=== PATIENT | female | born 1950 | race Caucasian/White ===

== ENCOUNTER 2017-02-04 11:44 | Inpatient (IN) | payer OTHER ==
[~2017-02-04] VITALS: Ht 154.9 cm; Wt 82.6 kg
[~2017-02-04 11:44] MED LIST: APIX5TAB PO; ASCO1TAB4 PO; ASPI-496 PO; ASPI325T4 PO; ATOR80TA75 PO; CLOP75TA PO; CLOP75TA22 PO; COLC0.6T37 PO; CRAN500C5 PO; FURO-93 PO; FURO20TA3 PO; FURO40TA6 PO; GLIP10TA13 PO; GLIP5TAB10 PO; METF500T4 PO; METO-93 PO; POTA10TA12 PO; PRAV20TA2 PO; statin PO
[2017-02-04 12:50] LABS: BLOOD UREA NITROGEN 49 mg/dL (7-18)
[2017-02-04] MEDS ORDERED: SODIUM CHLORIDE FLUSH 10ML SYR IVF ONE (13:00)
[2017-02-04] MEDS ORDERED: ZOLP-413 PO (13:05)
[2017-02-04] MEDS ORDERED: FURO40TA6 PO (13:05)
[2017-02-04] MEDS ORDERED: DIPH25TA65 PO (13:05)
[2017-02-04] MEDS ORDERED: ASCO1TAB2 PO (13:05)
[2017-02-04] MEDS ORDERED: POTA10TA12 PO (13:05)
[2017-02-04] MEDS ORDERED: SODIUM CHLORIDE FLUSH 10ML SYR IVF PRN (14:00)
[2017-02-04] MEDS ORDERED: PHARMACY MAY ADJ FOR RENAL FX MC PRN (15:30)
[2017-02-04] MEDS ORDERED: DOCUSATE 100 MG CAPSULE PO PRN (16:30)
[2017-02-04] MEDS ORDERED: POLYETHYLENE GLYCOL 17 GM PACKET PO PRN (16:30)
[2017-02-04] MEDS ORDERED: GLUCAGON 1 MG IM PRN (16:30)
[2017-02-04] MEDS ORDERED: ONDANSETRON ODT 4 MG PO PRN (16:30)
[2017-02-04] MEDS ORDERED: BISACODYL 10 MG SUPP PR PRN (16:30)
[2017-02-04] MEDS ORDERED: DEXTROSE 50%, 50ML SYRINGE IVPush PRN (16:30)
[2017-02-04] MEDS ORDERED: DEXTROSE 4 GM TAB.CHEW PO PRN (16:30)
[2017-02-04] MEDS ORDERED: FUROSEMIDE 40 MG/4 ML ONE (18:01)
[2017-02-04] MEDS: FUROSEMIDE 40 MG/4 ML IV SCH (18:06)
[2017-02-04 19:15] VITALS: BP 148/76
[2017-02-04 20:00] VITALS: BP 148/76
[2017-02-04] MEDS ORDERED: ASCORBATE CALCIUM PO SCH (21:00)
[2017-02-04] MEDS ORDERED: SODIUM CHLORIDE FLUSH 10ML SYR IVF SCH (21:00)
[2017-02-04] MEDS ORDERED: [UNRECOGNIZED DRUG - OTHER] PO SCH (21:00)
[2017-02-04] MEDS ORDERED: METOPROLOL SUCCINATE 50 MG TAB.ER.24H PO SCH (21:00)
[2017-02-04] MEDS: INSULIN REGULAR 100 UNITS/ML, 3ML VIAL SQ-INSULIN SCH (21:00)
[2017-02-04] MEDS ORDERED: BIOFLAVONOID PO SCH (21:00)
[2017-02-04] MEDS: ZOLPIDEM 5MG TABLET PO SCH (21:45)
[2017-02-04] MEDS: APIXABAN 5 MG TABLET PO SCH (21:46)
[2017-02-04] MEDS: ATORVASTATIN 80 MG TABLET PO SCH (21:46)
[2017-02-04] MEDS: ACETAMINOPHEN 325 MG TABLET PO PRN (21:52)
[2017-02-05 02:12] VITALS: BP 137/68
[2017-02-05 06:27] LABS: BLOOD UREA NITROGEN 44 mg/dL (7-18)
[2017-02-05 07:09] VITALS: BP 112/69
[2017-02-05] MEDS: INSULIN REGULAR 100 UNITS/ML, 3ML VIAL SQ-INSULIN SCH ×4 (07:53→21:00)
[2017-02-05] MEDS: FUROSEMIDE 40 MG/4 ML IV SCH ×2 (08:43→17:15)
[2017-02-05] MEDS: APIXABAN 5 MG TABLET PO SCH ×2 (08:43→21:44)
[2017-02-05] MEDS: DIPHENHYDRAMINE 25 MG CAPSULE PO SCH (08:43)
[2017-02-05] MEDS ORDERED: ASCORBATE CALCIUM PO SCH (09:00)
[2017-02-05] MEDS ORDERED: [UNRECOGNIZED DRUG - OTHER] PO SCH (09:00)
[2017-02-05] MEDS ORDERED: BIOFLAVONOID PO SCH (09:00)
[2017-02-05 13:28] VITALS: BP 118/72
[2017-02-05 19:33] VITALS: BP 108/63
[2017-02-05] MEDS: ACETAMINOPHEN 325 MG TABLET PO PRN (20:24)
[2017-02-05] MEDS: ZOLPIDEM 5MG TABLET PO SCH (21:44)
[2017-02-05] MEDS: ATORVASTATIN 80 MG TABLET PO SCH (21:44)
[2017-02-06 01:39] VITALS: BP 131/68
[2017-02-06 05:15] LABS: BLOOD UREA NITROGEN 43 mg/dL (7-18)
[2017-02-06] MEDS: INSULIN REGULAR 100 UNITS/ML, 3ML VIAL SQ-INSULIN SCH ×2 (08:22→11:00)
[2017-02-06] MEDS: FUROSEMIDE 40 MG/4 ML IV SCH (08:22)
[2017-02-06] MEDS: DIPHENHYDRAMINE 25 MG CAPSULE PO SCH (08:23)
[2017-02-06] MEDS: APIXABAN 5 MG TABLET PO SCH (08:23)
[2017-02-06] MEDS ORDERED: METOPROLOL SUCCINATE 50 MG TAB.ER.24H PO SCH (09:00)
[2017-02-06 09:27] VITALS: BP 108/52
[2017-02-06] MEDS ORDERED: FURO40TA6 PO (11:25)
== END 2017-02-06 13:00 | disposition home or self-care (01) | DRG 291 ==
LOC: ED 13:57 → EDIP 13:58 → ED 14:05 → 5SO 19:01 → DCLOUNGE 02-06 12:22
PROVIDERS: ADMIT Hospitalist; ATTEND Hospitalist
DX: I13.0 Hypertensive heart and chronic kidney disease with heart failure and stage 1 through stage 4 chronic kidney disease, or unspecified chronic kidney disease (principal); I50.43 Acute on chronic combined systolic (congestive) and diastolic (congestive) heart failure; N18.4 Chronic kidney disease, stage 4 (severe); N17.9 Acute kidney failure, unspecified; D68.69 Other thrombophilia; I47.2 Ventricular tachycardia; J98.11 Atelectasis; I42.9 Cardiomyopathy, unspecified; I25.10 Atherosclerotic heart disease of native coronary artery without angina pectoris; I48.91 Unspecified atrial fibrillation; J44.9 Chronic obstructive pulmonary disease, unspecified; D64.9 Anemia, unspecified; D69.6 Thrombocytopenia, unspecified; E11.22 Type 2 diabetes mellitus with diabetic chronic kidney disease; E66.9 Obesity, unspecified; Z68.34 Body mass index [BMI] 34.0-34.9, adult; E78.00 Pure hypercholesterolemia, unspecified; E78.5 Hyperlipidemia, unspecified; F17.200 Nicotine dependence, unspecified, uncomplicated; H40.9 Unspecified glaucoma; H54.41 Blindness, right eye, normal vision left eye; I35.0 Nonrheumatic aortic (valve) stenosis; I35.1 Nonrheumatic aortic (valve) insufficiency; E11.51 Type 2 diabetes mellitus with diabetic peripheral angiopathy without gangrene; K21.9 Gastro-esophageal reflux disease without esophagitis; K58.9 Irritable bowel syndrome, unspecified; Z82.49 Family history of ischemic heart disease and other diseases of the circulatory system; Z71.6 Tobacco abuse counseling; I25.2 Old myocardial infarction; Z83.3 Family history of diabetes mellitus; Z88.8 Allergy status to other drugs, medicaments and biological substances; Z79.899 Other long term (current) drug therapy
CPT/HCPCS: 36415; 71035; 80048; 82040; 82962; 83735; 83880; 84439; 84443; 84484; 85025; 85610; 85730; 93005; 93306; J1940; Q0163

== ENCOUNTER → 2017-04-29 | Outpatient (CLI) | payer OTHER ==
[~2017-04-29] MED LIST changes: +ASCO1TAB2 PO; +ASPI325T17 PO; -ASPI325T4 PO; +ATOR-2 PO; -ATOR80TA75 PO; -CLOP75TA22 PO; +CLOP75TA52 PO; +DIPH25TA65 PO; +ZOLP-413 PO
[2017-04-29 10:07] LABS: BLOOD UREA NITROGEN 45 mg/dL (7-18)
[2017-04-29 10:11] LABS: ASPARTATE AMINO TRANSFERASE 20 U/L (15-37)
[2017-04-29 10:28] LABS: HEMATOCRIT 50.2 % (34.6-47.8); HEMOGLOBIN 16.1 g/dL (11.7-16.4); WHITE BLOOD COUNT 6.8 x10^3/uL (3.4-10)
[2017-04-29 10:30] LABS: ANISOCYTOSIS 1+; OVALOCYTES 1+; POIKILOCYTOSIS 1+; POLYCHROMASIA 1+
[2017-04-29 10:31] LABS: LARGE PLATELETS 1+
== END | disposition home or self-care (01) ==
LOC: STAR 08:37
PROVIDERS: ATTEND Orthopaedic Surgery Orthopaedic Surgery of the Spine
DX: Z01.818 Encounter for other preprocedural examination (principal); J90 Pleural effusion, not elsewhere classified; I51.7 Cardiomegaly; J98.11 Atelectasis; Z79.01 Long term (current) use of anticoagulants
CPT/HCPCS: 36415; 71020; 80053; 81001; 85025; 85610; 85651; 85730; 93005

== ENCOUNTER 2017-05-09 06:14 | Inpatient (IN) | payer OTHER ==
[2017-04-29 09:03] VITALS: BP 98/63
[~2017-05-09] VITALS: Ht 157.5 cm; Wt 79.5 kg
[2017-05-09] MEDS ORDERED: LIDOCAINE 1%, 2ML ONE ×2 (06:54→07:56)
[2017-05-09] MEDS ORDERED: LACTATED RINGERS 1,000 ML IV SCH (07:05)
[2017-05-09] MEDS ORDERED: THROMBIN 20,000 UNIT VIAL TP ONE (07:08)
[2017-05-09] MEDS ORDERED: BUPIVACAINE/PF 0.5% ONE (07:08)
[2017-05-09] MEDS ORDERED: VANCOMYCIN 1,000 MG ONE (07:08)
[2017-05-09] MEDS ORDERED: EPINEPHRINE 1 MG/ML, 1ML ONE (07:08)
[2017-05-09] MEDS ORDERED: BACITRACIN 50,000 UNIT ONE (07:08)
[2017-05-09] MEDS ORDERED: LIDOCAINE 1%, 2ML SQ PRN (07:30)
[2017-05-09] MEDS ORDERED: MIDAZOLAM 1 MG/ML, 2ML ONE ×2 (07:56)
[2017-05-09] MEDS ORDERED: FENTANYL PF 250 MCG/5ML ONE ×2 (07:56)
[2017-05-09] MEDS ORDERED: VANCOMYCIN PER PHARMACY MC ONE (07:56)
[2017-05-09] MEDS ORDERED: GLYCOPYRROLATE 0.2MG/1ML, 5ML ONE (08:10)
[2017-05-09] MEDS ORDERED: NEOSTIGMINE 1 MG/ML, 10ML ONE (08:10)
[2017-05-09] MEDS ORDERED: VANCOMYCIN 1,500 MG in SODIUM CHLORIDE 0.9% 250 ML IV SCH (08:30)
[2017-05-09] MEDS ORDERED: SODIUM CHLORIDE 0.9% 100 ML ONE (09:13)
[2017-05-09] MEDS ORDERED: TRANEXAMIC ACID 100 MG/ML, 10ML ONE (09:13)
[2017-05-09] MEDS ORDERED: BUPIVACAINE/PF-EPI 0.5% 1:200K IM ONE (09:15)
[2017-05-09] MEDS ORDERED: HYDROmorphone 2 MG/ML, 1ML ONE (10:27)
[2017-05-09] MEDS ORDERED: ALBUTEROL SULFATE 2.5 MG/3 ML NPPB PRN (10:30)
[2017-05-09] MEDS ORDERED: MEPERIDINE/PF 25MG/0.5ML IVPush PRN (10:30)
[2017-05-09] MEDS ORDERED: DIAZEPAM 5 MG/ML, 10ML VIAL IVPush ONE (10:30)
[2017-05-09] MEDS ORDERED: ONDANSETRON 2MG/ML, 2ML IVPush PRN (10:30)
[2017-05-09] MEDS ORDERED: LABETALOL 5MG/ML, 20ML IV PRN ×2 (10:30→14:30)
[2017-05-09] MEDS ORDERED: ACETAMINOPHEN 325 MG TABLET PO PRN (10:30)
[2017-05-09] MEDS ORDERED: FENTANYL PF 100 MCG/2ML IV PRN (10:30)
[2017-05-09] MEDS ORDERED: PROPOFOL 10 MG/ML, 20ML ONE (11:44)
[2017-05-09] MEDS ORDERED: DEXAMETHASONE 4 MG/ML, 1ML ONE ×3 (11:44)
[2017-05-09] MEDS ORDERED: ROCURONIUM 10 MG/ML ONE (11:44)
[2017-05-09] MEDS ORDERED: ONDANSETRON 2MG/ML, 2ML ONE (11:44)
[2017-05-09] MEDS ORDERED: FENTANYL PF 100 MCG/2ML ONE (11:46)
[2017-05-09] MEDS ORDERED: SUGAMMADEX 200 MG/2 ML IVPush ONE (12:34)
[2017-05-09] MEDS ORDERED: HYDROmorphone 1 MG/ML, 1ML ONE (12:59)
[2017-05-09] MEDS: HYDROmorphone 1 MG/ML, 1ML IV PRN ×4 (13:00→13:20)
[2017-05-09] MEDS ORDERED: DIPHENHYDRAMINE 50 MG/ML, 1ML IVPush PRN (14:30)
[2017-05-09] MEDS ORDERED: DIPHENHYDRAMINE 50 MG CAPSULE PO PRN (14:30)
[2017-05-09] MEDS ORDERED: morphine SULFATE 10 MG/ML, 1ML IV PRN (14:30)
[2017-05-09] MEDS ORDERED: DIAZEPAM 5 MG/ML, 2ML IV PRN (14:30)
[2017-05-09] MEDS ORDERED: DIPHENHYDRAMINE 50 MG/ML, 1ML IM PRN (14:30)
[2017-05-09] MEDS ORDERED: MAGNESIUM HYDROXIDE 8%, 30ML UDC PO PRN (14:30)
[2017-05-09] MEDS ORDERED: PROMETHAZINE 25 MG/ML, 1ML IM PRN (14:30)
[2017-05-09] MEDS ORDERED: ONDANSETRON 2MG/ML, 2ML IV PRN (14:30)
[2017-05-09] MEDS ORDERED: OXYcodone IR 5MG TABLET PO PRN (14:30)
[2017-05-09] MEDS ORDERED: BISACODYL 10 MG SUPP PR PRN (14:30)
[2017-05-09] MEDS ORDERED: DIPHENHYDRAMINE 25 MG CAPSULE PO PRN (15:00)
[2017-05-09] MEDS ORDERED: VANCOMYCIN 1,500 MG in SODIUM CHLORIDE 0.9% 250 ML IV ONE (16:00)
[2017-05-09] MEDS: NS + 20MEQ KCL 1,000 ML IV SCH (17:28)
[2017-05-09] MEDS: CEFAZOLIN PMX 1GM/50ML 50 ML IVPB SCH (17:28)
[2017-05-09 20:45] VITALS: BP 121/73
[2017-05-09] MEDS ORDERED: ZOLPIDEM 5MG TABLET PO PRN (21:00)
[2017-05-09] MEDS: FUROSEMIDE 40 MG TABLET PO SCH (22:06)
[2017-05-09] MEDS: METOPROLOL SUCCINATE 50 MG TAB.ER.24H PO SCH (22:06)
[2017-05-09] MEDS: ATORVASTATIN 80 MG TABLET PO SCH (22:06)
[2017-05-09 23:36] VITALS: BP 123/56
[2017-05-10] MEDS: CEFAZOLIN PMX 1GM/50ML 50 ML IVPB SCH (00:30)
[2017-05-10 03:00] VITALS: BP 129/72
[2017-05-10 06:13] LABS: HEMATOCRIT 42.2 % (34.6-47.8); HEMOGLOBIN 13.6 g/dL (11.7-16.4); WHITE BLOOD COUNT 10.5 x10^3/uL (3.4-10)
[2017-05-10 08:00] VITALS: BP 126/71
[2017-05-10] MEDS ORDERED: SENNA/DOCUSATE TABLET PO SCH (09:00)
[2017-05-10] MEDS ORDERED: POTASSIUM CHLORIDE 10 MEQ TABLET.ER PO SCH (09:00)
[2017-05-10] MEDS: NS + 20MEQ KCL 1,000 ML IV SCH ×2 (09:00→21:30)
[2017-05-10] MEDS: METOPROLOL SUCCINATE 50 MG TAB.ER.24H PO SCH ×2 (09:52→21:45)
[2017-05-10] MEDS: FUROSEMIDE 40 MG TABLET PO SCH ×2 (09:52→21:45)
[2017-05-10] MEDS: APIXABAN 2.5 MG TABLET PO SCH ×2 (09:53→21:46)
[2017-05-10 13:23] VITALS: BP 100/46
[2017-05-10] MEDS: POTASSIUM CHLORIDE 10 MEQ TABLET.ER PO SCH (17:00)
[2017-05-10] MEDS: OXYcodone IR 5MG TABLET PO PRN ×2 (17:12→21:45)
[2017-05-10 19:57] VITALS: BP 117/54
[2017-05-10] MEDS: ATORVASTATIN 80 MG TABLET PO SCH (21:45)
[2017-05-11 02:33] VITALS: BP 103/53
[2017-05-11] MEDS: OXYcodone IR 5MG TABLET PO PRN ×4 (02:33→16:30)
[2017-05-11 05:33] LABS: HEMATOCRIT 43.4 % (34.6-47.8); HEMOGLOBIN 13.9 g/dL (11.7-16.4); WHITE BLOOD COUNT 9.9 x10^3/uL (3.4-10)
[2017-05-11 06:27] LABS: ANISOCYTOSIS 1+
[2017-05-11 06:28] LABS: OVALOCYTES 1+
[2017-05-11 06:29] LABS: HYPOCHROMIA 1+; LARGE PLATELETS 1+; POIKILOCYTOSIS 1+
[2017-05-11 06:30] LABS: POLYCHROMASIA 1+
[2017-05-11 07:50] VITALS: BP 116/53
[2017-05-11] MEDS: APIXABAN 2.5 MG TABLET PO SCH ×2 (08:18→21:01)
[2017-05-11] MEDS: FUROSEMIDE 40 MG TABLET PO SCH ×2 (08:19→21:00)
[2017-05-11] MEDS: METOPROLOL SUCCINATE 50 MG TAB.ER.24H PO SCH ×2 (08:19→21:00)
[2017-05-11] MEDS: SENNA/DOCUSATE TABLET PO SCH (08:19)
[2017-05-11] MEDS: POTASSIUM CHLORIDE 10 MEQ TABLET.ER PO SCH (08:19)
[2017-05-11] MEDS: NS + 20MEQ KCL 1,000 ML IV SCH (08:20)
[2017-05-11 12:44] VITALS: BP 125/51
[2017-05-11] MEDS ORDERED: SENN1TAB94 PO (14:11)
[2017-05-11] MEDS ORDERED: DIAZ5TAB PO (14:12)
[2017-05-11] MEDS ORDERED: DIPH25CA61 PO (14:14)
[2017-05-11] MEDS ORDERED: OXYC5TAB3 PO (14:15)
[2017-05-11] MEDS ORDERED: OXYC10TA6 PO (14:18)
[2017-05-11] MEDS ORDERED: CEPH-368 PO (14:26)
[2017-05-11] MEDS ORDERED: FLU VACC QS2017-18 (36MOS+) UP/PF 0.5 ML IM-VACC ONE (15:30)
[2017-05-11 17:02] VITALS: BP 109/40
[2017-05-11] MEDS: ATORVASTATIN 80 MG TABLET PO SCH (21:00)
[2017-05-11 21:54] VITALS: BP 140/59
[2017-05-12 00:34] VITALS: BP 110/48
[2017-05-12] MEDS: OXYcodone IR 5MG TABLET PO PRN (05:37)
[2017-05-12 06:13] LABS: HEMATOCRIT 42.6 % (34.6-47.8); HEMOGLOBIN 13.9 g/dL (11.7-16.4); WHITE BLOOD COUNT 8.3 x10^3/uL (3.4-10)
[2017-05-12 07:11] VITALS: BP 137/55
[2017-05-12] MEDS: POTASSIUM CHLORIDE 10 MEQ TABLET.ER PO SCH (08:37)
[2017-05-12] MEDS: APIXABAN 2.5 MG TABLET PO SCH ×2 (08:37→21:25)
[2017-05-12] MEDS: FUROSEMIDE 40 MG TABLET PO SCH (08:38)
[2017-05-12] MEDS: METOPROLOL SUCCINATE 50 MG TAB.ER.24H PO SCH ×2 (08:38→21:35)
[2017-05-12] MEDS: SENNA/DOCUSATE TABLET PO SCH (08:39)
[2017-05-12 13:07] VITALS: BP 112/62
[2017-05-12 14:22] LABS: BLOOD UREA NITROGEN 55 mg/dL (7-18)
[2017-05-12] MEDS ORDERED: ALBUMIN HUMAN 25% 100 ML IV ONE (14:30)
[2017-05-12 14:40] LABS: ASPARTATE AMINO TRANSFERASE 42 U/L (15-37)
[2017-05-12 14:58] VITALS: BP 117/53
[2017-05-12] MEDS ORDERED: FUROSEMIDE 40 MG/4 ML IV SCH (17:00)
[2017-05-12] MEDS ORDERED: ALBUMIN HUMAN 25% 100 ML IV SCH (18:00)
[2017-05-12 20:40] VITALS: BP 103/67
[2017-05-12] MEDS: ATORVASTATIN 80 MG TABLET PO SCH (21:26)
[2017-05-13 01:37] VITALS: BP 118/69
[2017-05-13 02:02] VITALS: BP 103/63
[2017-05-13] MEDS ORDERED: ALBUTEROL/IPRATROPIUM 2.5MG/0.5MG, 3 ML NPPB PRN (04:30)
[2017-05-13 06:15] LABS: HEMATOCRIT 40.4 % (34.6-47.8); HEMOGLOBIN 13.1 g/dL (11.7-16.4); WHITE BLOOD COUNT 7.4 x10^3/uL (3.4-10)
[2017-05-13 06:26] LABS: ASPARTATE AMINO TRANSFERASE 28 U/L (15-37); BLOOD UREA NITROGEN 55 mg/dL (7-18)
[2017-05-13] MEDS: ALBUMIN HUMAN 25% 100 ML IV SCH ×2 (07:52→17:28)
[2017-05-13 08:05] VITALS: BP 114/61
[2017-05-13] MEDS: FUROSEMIDE 40 MG/4 ML IV SCH ×2 (08:45→18:11)
[2017-05-13] MEDS: APIXABAN 2.5 MG TABLET PO SCH ×2 (08:47→20:34)
[2017-05-13] MEDS: METOPROLOL SUCCINATE 50 MG TAB.ER.24H PO SCH ×2 (08:48→20:34)
[2017-05-13] MEDS: SENNA/DOCUSATE TABLET PO SCH (08:48)
[2017-05-13 12:20] VITALS: BP 108/57
[2017-05-13] MEDS: KETOROLAC 30 MG/1 ML IVPush PRN (13:51)
[2017-05-13 18:40] VITALS: BP 95/57
[2017-05-13] MEDS: ATORVASTATIN 80 MG TABLET PO SCH (20:35)
[2017-05-14] MEDS: KETOROLAC 30 MG/1 ML IVPush PRN (01:52)
[2017-05-14 02:00] VITALS: BP 120/59
[2017-05-14] MEDS: ALBUMIN HUMAN 25% 100 ML IV SCH (05:37)
[2017-05-14 06:14] LABS: HEMATOCRIT 36.5 % (34.6-47.8)
[2017-05-14 06:43] LABS: ASPARTATE AMINO TRANSFERASE 26 U/L (15-37); BLOOD UREA NITROGEN 59 mg/dL (7-18)
[2017-05-14 08:00] VITALS: BP 117/66
[2017-05-14] MEDS: APIXABAN 2.5 MG TABLET PO SCH (08:42)
[2017-05-14] MEDS: METOPROLOL SUCCINATE 50 MG TAB.ER.24H PO SCH ×2 (08:42→21:04)
[2017-05-14] MEDS: FUROSEMIDE 40 MG/4 ML IV SCH ×2 (08:42→15:57)
[2017-05-14] MEDS: SENNA/DOCUSATE TABLET PO SCH (08:42)
[2017-05-14] MEDS ORDERED: METOLAZONE 5 MG TABLET PO ONE (12:30)
[2017-05-14 14:14] VITALS: BP 109/53
[2017-05-14] MEDS: DIAZEPAM 5 MG TABLET PO PRN ×2 (16:01→21:18)
[2017-05-14 18:44] VITALS: BP 112/57
[2017-05-14] MEDS: ATORVASTATIN 80 MG TABLET PO SCH (21:03)
[2017-05-14] MEDS: APIXABAN 5 MG TABLET PO SCH (21:03)
[2017-05-15] VITALS (14 sets, daily range): BP systolic 88–125; BP diastolic 51–75
[2017-05-15] MEDS ORDERED: DILTIAZEM 5 MG/ML, 5ML ONE (03:55)
[2017-05-15] MEDS ORDERED: DILTIAZEM 5 MG/ML, 5ML IVPush ONE (04:00)
[2017-05-15 06:02] LABS: ASPARTATE AMINO TRANSFERASE 21 U/L (15-37); BLOOD UREA NITROGEN 60 mg/dL (7-18)
[2017-05-15] MEDS: FUROSEMIDE 40 MG/4 ML IV SCH ×2 (08:14→17:11)
[2017-05-15] MEDS: METOPROLOL SUCCINATE 50 MG TAB.ER.24H PO SCH ×2 (08:14→21:00)
[2017-05-15] MEDS: APIXABAN 5 MG TABLET PO SCH ×2 (08:14→20:58)
[2017-05-15] MEDS: SENNA/DOCUSATE TABLET PO SCH (08:14)
[2017-05-15] MEDS ORDERED: ACETAMINOPHEN 325 MG TABLET PO PRN (14:30)
[2017-05-15] MEDS: HYDROcodone/APAP 5/325 TABLET PO PRN (14:49)
[2017-05-15] MEDS ORDERED: METOLAZONE 2.5 MG TABLET PO ONE (16:30)
[2017-05-15] MEDS ORDERED: TRAZODONE 50MG TABLET PO PRN (17:30)
[2017-05-15] MEDS: ATORVASTATIN 80 MG TABLET PO SCH (20:58)
[2017-05-15] MEDS ORDERED: AMIODARONE 150 MG in DEXTROSE 5% 100 ML IV ONE (21:00)
[2017-05-15] MEDS ORDERED: AMIODARONE 900 MG in DEXTROSE 5% 482 ML IV PRN (21:00)
[2017-05-15] MEDS ORDERED: FILTER 0.22 MICRON IV PRN (21:00)
[2017-05-16] VITALS (9 sets, daily range): BP systolic 73–114; BP diastolic 43–72
[2017-05-16] MEDS: HYDROcodone/APAP 5/325 TABLET PO PRN (03:17)
[2017-05-16] MEDS: METOLAZONE 5 MG TABLET PO SCH (08:37)
[2017-05-16] MEDS: APIXABAN 5 MG TABLET PO SCH ×2 (08:37→21:05)
[2017-05-16] MEDS: SENNA/DOCUSATE TABLET PO SCH (08:37)
[2017-05-16] MEDS: FUROSEMIDE 40 MG/4 ML IV SCH ×3 (08:37→21:00)
[2017-05-16 09:22] LABS: BLOOD UREA NITROGEN 61 mg/dL (7-18)
[2017-05-16] MEDS: METOPROLOL SUCCINATE 50 MG TAB.ER.24H PO SCH ×3 (12:43→21:11)
[2017-05-16] MEDS: DIAZEPAM 5 MG TABLET PO PRN (21:05)
[2017-05-16] MEDS: ATORVASTATIN 80 MG TABLET PO SCH (21:05)
[2017-05-17] VITALS (9 sets, daily range): BP systolic 74–112; BP diastolic 40–76
[2017-05-17] MEDS: SENNA/DOCUSATE TABLET PO SCH (09:00)
[2017-05-17] MEDS: FUROSEMIDE 40 MG/4 ML IV SCH (09:00)
[2017-05-17] MEDS: DIAZEPAM 5 MG TABLET PO PRN ×2 (09:58→22:47)
[2017-05-17] MEDS: APIXABAN 5 MG TABLET PO SCH ×2 (09:59→21:47)
[2017-05-17] MEDS: METOLAZONE 5 MG TABLET PO SCH (09:59)
[2017-05-17] MEDS ORDERED: AMIODARONE 200 MG TABLET PO SCH (10:00)
[2017-05-17 11:18] LABS: BLOOD UREA NITROGEN 63 mg/dL (7-18)
[2017-05-17] MEDS ORDERED: FILTER 0.22 MICRON IV PRN (14:00)
[2017-05-17] MEDS ORDERED: AMIODARONE 150 MG in DEXTROSE 5% 100 ML IV ONE (14:00)
[2017-05-17] MEDS ORDERED: AMIODARONE 900 MG in DEXTROSE 5% 482 ML IV PRN (14:00)
[2017-05-17] MEDS: FUROSEMIDE 40 MG TABLET PO SCH (17:00)
[2017-05-17] MEDS ORDERED: PROMETHAZINE 25 MG/ML, 1ML IM PRN (20:30)
[2017-05-17] MEDS ORDERED: TRAZODONE 50MG TABLET PO PRN (20:30)
[2017-05-17] MEDS ORDERED: DIPHENHYDRAMINE 50 MG CAPSULE PO PRN (20:30)
[2017-05-17] MEDS ORDERED: ONDANSETRON 2MG/ML, 2ML IV PRN (20:30)
[2017-05-17] MEDS ORDERED: BISACODYL 10 MG SUPP PR PRN (20:30)
[2017-05-17] MEDS ORDERED: LABETALOL 5MG/ML, 20ML IV PRN (20:30)
[2017-05-17] MEDS: METOPROLOL SUCCINATE 50 MG TAB.ER.24H PO SCH (21:00)
[2017-05-17] MEDS: ATORVASTATIN 80 MG TABLET PO SCH (21:00)
[2017-05-17] MEDS ORDERED: HYDROcodone/APAP 5/325 TABLET PO PRN (21:30)
[2017-05-18 02:54] VITALS: BP_SYST 85; BP_SYST 90; BP_DIAS 50; BP_DIAS 51
[2017-05-18 05:50] LABS: BLOOD UREA NITROGEN 71 mg/dL (7-18)
[2017-05-18] MEDS: FUROSEMIDE 40 MG TABLET PO SCH (08:00)
[2017-05-18] MEDS: METOPROLOL SUCCINATE 50 MG TAB.ER.24H PO SCH (08:50)
[2017-05-18] MEDS: APIXABAN 5 MG TABLET PO SCH (08:50)
[2017-05-18] MEDS: SENNA/DOCUSATE TABLET PO SCH (08:50)
[2017-05-18] MEDS: METOLAZONE 5 MG TABLET PO SCH (08:50)
[2017-05-18] MEDS: MORPHINE SULFATE 4 MG/ML, 1ML IVPush PRN ×2 (09:50→12:27)
[2017-05-18] MEDS ORDERED: OXYC500S2 PO (14:26)
[2017-05-18] MEDS ORDERED: OXYC5TAB3 PO (14:27)
[2017-05-18] MEDS ORDERED: [UNRECOGNIZED DRUG - CODE] PO (14:31)
== END 2017-05-18 15:10 | disposition hospice, home (50) | DRG 459 ==
LOC: ORIP 06:14 → 4NOR 14:07 → 5SO 05-12 14:39
PROVIDERS: ADMIT Orthopaedic Surgery Orthopaedic Surgery of the Spine; ATTEND Orthopaedic Surgery Orthopaedic Surgery of the Spine
PROC: 01NB0ZZ Release Lumbar Nerve, Open Approach (ICD-10-PCS; 2017-05-09)
PROC: 4A11X4G Monitoring of Peripheral Nervous Electrical Activity, Intraoperative, External Approach (ICD-10-PCS; 2017-05-09)
PROC: 07DR3ZZ Extraction of Iliac Bone Marrow, Percutaneous Approach (ICD-10-PCS; 2017-05-09)
PROC: 0SB20ZZ Excision of Lumbar Vertebral Disc, Open Approach (ICD-10-PCS; 2017-05-09)
PROC: 0SG30AJ Fusion of Lumbosacral Joint with Interbody Fusion Device, Posterior Approach, Anterior Column, Open Approach (ICD-10-PCS; principal; 2017-05-09 08:00)
DX: M48.061 Spinal stenosis, lumbar region without neurogenic claudication (principal); E43 Unspecified severe protein-calorie malnutrition; J96.01 Acute respiratory failure with hypoxia; I47.2 Ventricular tachycardia; I50.23 Acute on chronic systolic (congestive) heart failure; N17.9 Acute kidney failure, unspecified; D68.69 Other thrombophilia; E11.22 Type 2 diabetes mellitus with diabetic chronic kidney disease; N18.4 Chronic kidney disease, stage 4 (severe); E87.1 Hypo-osmolality and hyponatremia; I13.0 Hypertensive heart and chronic kidney disease with heart failure and stage 1 through stage 4 chronic kidney disease, or unspecified chronic kidney disease; J98.11 Atelectasis; R17 Unspecified jaundice; D69.6 Thrombocytopenia, unspecified; E11.51 Type 2 diabetes mellitus with diabetic peripheral angiopathy without gangrene; M51.17 Intervertebral disc disorders with radiculopathy, lumbosacral region; E11.649 Type 2 diabetes mellitus with hypoglycemia without coma; E78.5 Hyperlipidemia, unspecified; F17.210 Nicotine dependence, cigarettes, uncomplicated; G47.00 Insomnia, unspecified; H40.9 Unspecified glaucoma; H54.61 Unqualified visual loss, right eye, normal vision left eye; I08.3 Combined rheumatic disorders of mitral, aortic and tricuspid valves; I25.10 Atherosclerotic heart disease of native coronary artery without angina pectoris; I25.2 Old myocardial infarction; I25.5 Ischemic cardiomyopathy; I27.21 Secondary pulmonary arterial hypertension; I48.2 Chronic atrial fibrillation; J44.9 Chronic obstructive pulmonary disease, unspecified; K21.9 Gastro-esophageal reflux disease without esophagitis; E66.9 Obesity, unspecified; G89.29 Other chronic pain; R74.0 Nonspecific elevation of levels of transaminase and lactic acid dehydrogenase [LDH]; K58.9 Irritable bowel syndrome, unspecified; Z66 Do not resuscitate; Z68.32 Body mass index [BMI] 32.0-32.9, adult; Z88.1 Allergy status to other antibiotic agents; Z88.2 Allergy status to sulfonamides; Z88.8 Allergy status to other drugs, medicaments and biological substances; Z82.49 Family history of ischemic heart disease and other diseases of the circulatory system; Z90.49 Acquired absence of other specified parts of digestive tract; Z95.5 Presence of coronary angioplasty implant and graft; Z98.49 Cataract extraction status, unspecified eye; Z79.84 Long term (current) use of oral hypoglycemic drugs; Z79.899 Other long term (current) drug therapy; Z79.01 Long term (current) use of anticoagulants
CPT/HCPCS: 36415; 71010; 72100; 78582; 80048; 80053; 82140; 82962; 83036; 83735; 83880; 84145; 85025; 85610; 85730; 90686; 93005; 93306; C1713; J0171; J0690; J1100; J1170; J1885; J1940; J2250; J2405; J2704; J2710; J3010; J3360; J3370; J3480; J3490; P9047; A9540; A9558; C1760; C1762; C1763; C9362; C9898; J0282; J7050; J7060; J7120